=== PATIENT | male | born 1950 | race Caucasian/White ===

== ENCOUNTER 2020-09-26 06:48 | Day surgery (SDC) | payer OTHER, MEDICARE ==
[~2020-09-26] VITALS: Ht 180.3 cm; Wt 106.1 kg
--- NOTE | ~2020-09-26 | O ---
[facility] [place] [address] OPERATIVE REPORT Name: JULISSA EPPS Room #: 150-6 [facility]#: [id number] Admission: 09/26/20 Attend Phys: Kevon Kang MD Discharge: Date of : 50 Report #: [id number] THIS REPORT FOR: cc: Khurram Del Rosario MD, Daniel MD White,Kevon Duran MD ~ DOC #: [id number] cc: Dr. Gomez Hastings, Dr. Khurram Kang MD DATE OF SERVICE: 09/26/2020 PREOPERATIVE DIAGNOSIS: Basal cell carcinoma of right upper lid, right medial canthus, and right lower lid. POSTOPERATIVE DIAGNOSIS: Basal cell carcinoma of right upper lid, right medial canthus, and right lower lid. PROCEDURES: Excision of basal cell carcinoma of right upper lid, right medial canthus and right lower lid with frozen section control of margins, myocutaneous flap repair of defect. SURGEON: Kevon Kang MD EAP COUNSELOR: None. ANESTHESIOLOGIST: NGUYỄN. COMPLICATIONS: None. INDICATIONS FOR SURGERY: This pleasant 70-year-old gentleman has a biopsy-proven basal cell carcinoma in the medial most aspect of his right upper lid that extends through his medial canthus and onto his lower lid. He presents today for excision of this lesion with frozen sections and subsequent reconstruction of that defect. Informed consent was obtained to include but not limited to the potential risk for loss of vision, bleeding, infection, failure to improve the problem, the potential need for further surgery or treatment. DESCRIPTION OF PROCEDURE: The patient was taken to the operating room where 2% Xylocaine with epinephrine mixed with equal parts 0.75% Marcaine with Wydase was administered transcutaneously to the right upper lid, the right medial canthus, the right lower lid, and the glabella. The patient was subsequently prepped and draped in the usual sterile fashion. A fine tip skin marking pen was then utilized to outline the lesion including a 2-3 mm cuff of normal appearing tissue around its margins. The incisions were then made with a Asia scissor and the deeper dissection accomplished sharply. The initial excision went [address] [address] OPERATIVE REPORT Name: JULISSA EPPS Room #: 150-6 [facility]#: [id number] Admission: 09/26/20 Attend Phys: Kevon Kang MD Discharge: Date of : 50 Report #: [id number] through the angular artery. Hemostasis was achieved with diligent pinpoint monopolar cautery. The specimen was then oriented on a drawing for the waiting pathologist. She snap froze the tissue and found that the margin superiorly she could not definitively clear, but the other margins were clear. An additional piece of tissue was then sent for her to examine superiorly, taking the entire superior half of the incision. Hemostasis was re-achieved. She snap froze this tissue and found that she could confidently say that the margin was now clear. Attention was then turned to reconstruction of the defect. The wound was undermined inferiorly, medially up onto the glabella, superiorly back shallowly into the forehead, and then medially into the upper eyelid. A myocutaneous flap was then developed and then rotated into position that was obliquely oriented. The flap was secured to periosteum over the medial canthal area with interrupted 5-0 Prolene sutures. The subcutaneous structures were then closed with interrupted plain gut sutures as was the skin closed with 6-0 plain gut sutures. The wound was then cleaned and dried with minimal trauma. The wound was then dressed with erythromycin ophthalmic ointment. The flap was advanced well and had good color at the end of the case. MD JOSE Bell/JAILYN/ANJUM By: [id number] Kevon Kang MD /nt
[~2020-09-26 06:48] MED LIST: ACYCLOVIR 200200 MG PO; AZITHROMYCIN500 MG PO; BACTRIM DS TAB1 EAC1 PO; CALCIUM CARBON500 MG PO; CLARITIN10 M3 PO; ELIQUIS2.5 MG PO; FLOMAX0.4 MG PO; MELATONIN5 MG SUBLING; MYCOPHENOLATE500 MG PO; NORVASC5 MG PO; PREDNISONE 10 M10 MG PO; PROTONIX40 M2 PO; SINGULAIR 10 MG10 MG PO; TACROLIMUS1 MG PO; TRAMADOL 50 MG50 MG PO; VIAGRA50 MG PO; VITAMIN D325 MC3 PO
[2020-09-26 08:00] VITALS: BP 145/78
--- NOTE | 2020-09-27 17:07 | PATH ---
[facility] [address] [place] [address] PATHOLOGY RPT PROCEDURE Name: JULISSA EPPS Room #: [facility]..#: [id number] Admission: 09/26/20 Date of : 50 Discharge: 09/26/20 Report #: [id number] Path Case #: [id number] [facility] Accession Number: [id number] . 01 Material submitted: . PART A: canthus - RIGHT MEDIAL CANTHUS,LOWER LID,UPPER LID BASAL CELL CARCINOMA-FS. Modifiers: right PART B: canthus - ADDITIONAL SUPERIOR RIGHT MEDIAL CATHUS UPPER LID-FS . 01 Clinical history: . History of biopsy proven basal cell carcinoma, now undergoing excision. . 02 Frozen section diagnosis: . FROZEN SECTION DIAGNOSES: (Kaleigh Berg MD) . FSA1, right medial canthus lower lid/upper lid BCC, excision: - Present at superior margin/tip, remainder of margins free. . FSB1, additional superior right medial canthus upper lid, excision: - Negative for invasive carcinoma on frozen section slides. . These findings are discussed with Dr. Kevon Kang in OR6 at [facility] and a written report is placed in the patient's chart. . Frozen section performed at [facility], [address] , [place] [address]. . FROZEN SECTION GROSS DESCRIPTION: A. Specimen is received fresh from the OR labeled with the patient's name, and "right medial canthus lower lid, upper lid BCC", consists of an oriented ellipse of skin measuring 1 x 0.6 x 0.3 cm. The specimen is oriented as superior, medial, inferior and 11:00. The tip of the specimen represents approximately 1:00 of the specimen, 12:00 represents superior, and medial represents 3:00. At this point, the specimen is inked as follows: the superior margin is tagged with yellow ink, the entire inferior margin is inked black including its deep margin, the inferior to lateral tip is additionally tagged with red (approximately 7:00). The lateral to superior margin is inked blue towards the lateral half and green towards the superior half of the specimen. At this point, the specimen is sectioned into four pieces and submitted in entirety for frozen section as FSA1, this is subsequently submitted for permanent sections as A1. . B. Specimen is received fresh from the OR labeled with the patient's name, and "additional superior right medial canthus upper lid", consists of a thin strip of skin oriented additionally as medial, superior, and lateral. The en face margin towards the medial half is inked black and the lateral half is inked green. At this point, the specimen is submitted en face for [address] [address] PATHOLOGY RPT PROCEDURE Name: JULISSA EPPS Room #: [facility] [place]#: [id number] Admission: 09/26/20 Date of : 50 Discharge: 09/26/20 Report #: [id number] Path Case #: [id number] frozen section as FSB1, subsequently submitted for permanent sections as B1. . (IUV:niki; 09/26/2020) IZV/QMS . 02 Diagnosis: A. Skin, right medial canthus lower lid, upper lid, excision: - BASAL CELL CARCINOMA. - Margins of resection free of malignancy, see comment. . B. Skin, additional superior right medial canthus upper lid, excision: - Negative for malignancy. . (IUV:mml; 09/27/2020) [facility] 09/27/2020 1240 Local . 02 Comment: A. Examination of the "superior tip" submitted at the time of the frozen section shows basal cell carcinoma present on the frozen section slides therefore confirming the diagnosis rendered at the time. Deeper sections towards the tip show no evidence of malignancy. This was discussed with Dr. Kang at the time of surgery (intraoperatively). An additional margin was submitted for frozen section to assure negative margins. There is no evidence of malignancy present within the "additional superior right medial canthus upper lid" sections. . (IUV:mml; 09/27/2020) . 02 Electronically signed: . Kaleigh Berg MD, Pathologist NPI- [id number] . 01 Gross description: . A, B. PLEASE SEE GROSS DESCRIPTION UNDER FROZEN SECTION DIAGNOSIS HEADING. /QMS 09/27/2020 1226 Local . 02 Microscopic: . . . 02 Pathologist provided ICD-10: C44.1122 . 02 CPT . 068638, 646787, 397564, 444149 Specimen Comment: A courtesy copy of this report has been sent to [phone], [address] [place] [address] PATHOLOGY RPT PROCEDURE Name: JULISSA EPPS Room #: DEP [facility].R.#: [id number] Admission: 09/26/20 Date of : 50 Discharge: 09/26/20 Report #: [id number] Path Case #: [id number] Specimen Comment: [id number] Specimen Comment: Report sent to / DR YEPEZ Performed at: 01 [facility] [address], [place], [place] [id number] MD Valerio Kathleen MD Phone: [phone] Performed at: 02 [facility] [place] [address] [place], [place] [id number] MD Kaleigh Berg MD Phone: [phone]
== END 2020-09-26 11:25 | disposition home or self-care (01) ==
LOC: TBA 06:48 → OR 06:48 → TBA 06:49 → OR 07:24
PROVIDERS: ATTEND Ophthalmology
DX: C44.1122 Basal cell carcinoma of skin of right lower eyelid, including canthus (principal); I10 Essential (primary) hypertension; E78.5 Hyperlipidemia, unspecified; K21.9 Gastro-esophageal reflux disease without esophagitis; Z98.890 Other specified postprocedural states; Z87.891 Personal history of nicotine dependence; Z79.899 Other long term (current) drug therapy; Z98.42 Cataract extraction status, left eye; Z94.2 Lung transplant status; Z20.822 Contact with and (suspected) exposure to COVID-19; Z88.8 Allergy status to other drugs, medicaments and biological substances; Z91.040 Latex allergy status
CPT/HCPCS: 50010; 50101; 50386; 50398; 51636; 56527; 56531; 62110; 62850; 70005